=== PATIENT | male | born 1970 | race African-American/Black ===

== ENCOUNTER 2019-03-09 16:36 | Emergency (ER) | payer OTHER ==
[~2019-03-09] VITALS: Ht 175.3 cm; Wt 76.4 kg
[2019-03-09] MEDS ORDERED: BACITRACIN 0.9 GM PACKET OINTMENT TP ONE (17:15)
[2019-03-09] MEDS ORDERED: LIDOCAINE 1% 10 ML VIAL INJ ONE (17:15)
[2019-03-09] MEDS ORDERED: PERTUSS(ACELL),DIPH,TET VAC/PF 0.5 ML VIAL IM ONE (17:15)
[2019-03-09 19:05] VITALS: BP 124/91
[2019-03-09] MEDS ORDERED: CEPHALEXIN MONOHYDRATE 500 MG CAPSULE PO ONE (19:30)
== END 2019-03-09 19:35 | disposition home or self-care (01) ==
LOC: EMS 16:37
DX: S66.821A Laceration of other specified muscles, fascia and tendons at wrist and hand level, right hand, initial encounter (principal); W45.8XXA Other foreign body or object entering through skin, initial encounter; Y93.89 Activity, other specified; Y92.89 Other specified places as the place of occurrence of the external cause; Y99.8 Other external cause status
CPT/HCPCS: 12002; 90471; 90715; 99283; J3490